=== PATIENT | female | born 1980 | race African-American/Black ===

== ENCOUNTER 2016-10-10 22:43 | Emergency (ER) | payer BC ==
[2016-10-10 22:14] LABS: ASCORBIC ACID (UR NOT ORDER) 40 (NEG); BILIRUBIN, URINE NEGATIVE (NEG); ER URINALYSIS TAT 0 Hrs 10 Mins; KETONE, URINE NEGATIVE (NEG); LEUKOCYTE ESTERASE(NOT OR MOD (NEG); NITRITE (URINE) NEG (NEG); WBC (NOT ORDERED) (RFLEX) 20 (0-5)
[2016-10-10 23:42] LABS: BASOPHILS 0.2 %; BASOPHILS ABSOLUTE 0.02 10/3/uL (0.0-0.16); EOSINOPHILS 3.7 %; EOSINOPHILS ABSOLUTE 0.33 10/3/uL (0.0-0.53); ER CBC TAT 0 Hrs 05 Mins; HEMATOCRIT 27.8 % (36.0-48.0); HEMOGLOBIN 8.6 g/dL (12.0-16.0); IMMATURE GRANULOCYTES 0.2 %; IMMATURE GRANULOCYTES ABSOLUTE 0.02 10/3/uL (0.0-0.11); LYMPHOCYTES 26.9 %; LYMPHOCYTES ABSOLUTE 2.39 10/3/uL (0.67-4.30); MANUAL DIFF NO %; MEAN CORPUS HGB CONC 30.9 g/dL (32.0-36.0); MEAN CORPUSCULAR HEMOGLOB 21.4 pg (26.0-34.0); MEAN CORPUSCULAR VOLUME 69.3 fL (80-100); MEAN PLATELET VOLUME 9.5 fL (9.2-13.0); MONOCYTES 13.9 %; MONOCYTES ABSOLUTE 1.24 10/3/uL (0.21-1.20); NEUTROPHILS 55.1 %; NEUTROPHILS ABSOLUTE 4.89 10/3/uL (2.02-8.40); PLATELET COUNT 343 10/3/uL (150-400); RBC DISTRIBUTION WIDTH 17.2 % (12.0-16.0); RED CELL COUNT 4.01 10/6/uL (4.0-5.6); WHITE BLOOD CELLS 8.9 10/3/uL (4.5-10.5)
[2016-10-11 00:02] LABS: A/G RATIO 0.6 (0.7-1.9); ALKALINE PHOSPHATASE 63 U/L (45-117); BUN (BLOOD UREA NITROGEN) 2 MG/DL (6-23); CALCIUM, SERUM 8.6 MG/DL (8.5-10.4); CHLORIDE, SERUM 103 MMOL/L (96-112); CO2 (CARBON DIOXIDE) 28 MMOL/L (24-34); CREATININE 0.56 MG/DL (0.55-1.02); GFR AFRICAN AMERICAN 137 ML/MIN (>=60); GFR NON AFRICAN AMERICAN 118 ML/MIN (>=60); GLOBULIN 5.2 G/DL (2.5-4.1); GLUCOSE, SERUM 92 MG/DL (60-99); SGPT(ALT) 50 U/L (5-65); TOTAL BILIRUBIN 0.3 MG/DL (0-1.2); TOTAL PROTEIN 8.2 G/DL (6.0-8.5)
[2016-10-11 00:03] LABS: DIRECT BILIRUBIN < 0.1 MG/DL (0.0-0.4); INDIRECT BILIRUBIN(NOT ORDER) 0.2 MG/DL (0.1-0.9); POTASSIUM, SERUM 4.3 MMOL/L (3.5-5.3); SGOT(AST) 63 U/L (5-40); SODIUM, SERUM 137 MMOL/L (135-148)
[2016-10-11 00:15] LABS: ANISOCYTOSIS 1+ (5-10/OIF) (0-5/OIF); PLATELET ESTIMATE ADQ (ADEQUATE)
[2016-10-11 00:16] LABS: TARGET CELLS OCC (1-2/OIF) (0-1/OIF)
== END 2016-10-11 02:15 | disposition home or self-care (01) ==
LOC: ER 22:43
PROVIDERS: Emergency Medicine
DX: D25.9 Leiomyoma of uterus, unspecified (principal); N83.209 Unspecified ovarian cyst, unspecified side; K59.00 Constipation, unspecified; N39.0 Urinary tract infection, site not specified; D64.9 Anemia, unspecified
CPT/HCPCS: 74177; 80053; 81001; 82248; 82270; 83690; 84703; 85025; 87040; 87086; 96374; 99284; Q9967